=== PATIENT | male | born 1985 | race African-American/Black ===

== ENCOUNTER 2024-01-22 00:53 | Emergency (ER) | payer SELFPAY ==
[2024-01-22] MEDS ORDERED: Ketorolac Tromethamine 30 MG (1 mL) VIAL ONE (01:24)
== END 2024-01-22 02:15 | disposition home or self-care (01) ==
LOC: CSHERS 00:53
DX: M79.641 Pain in right hand (principal); F17.210 Nicotine dependence, cigarettes, uncomplicated; Z55.0 Illiteracy and low-level literacy
CPT/HCPCS: 96372; J1885